=== PATIENT | male | born 1990 ===

== ENCOUNTER 2018-02-22 19:30 | Inpatient (IN) | payer OTHER ==
[~2018-02-22] VITALS: Ht 180.3 cm; Wt 60.3 kg
--- NOTE | 2018-02-23 00:03 | NUR ---
PREADMISSION NOTE Pt. is A/O to person, place, time, and purpose. Pt. states substance use of Opiates. Last use was 02/22/18 @ 1800. Pt. appears mildly intoxicated. Pt. claims he is not feeling any s/s of withdrawal. Pt. has a steady gait unassisted. Pt.'s V/S are P: 98, RR:18, O2Sat: 98%, and BP: 116/54. Pt. is acceptable to come onto the unit.
[2018-02-23] MEDS ORDERED: IBUPROFEN 400 MG TABLET PO PRN (00:15)
[2018-02-23] MEDS ORDERED: HYDROXYZINE PAMOATE 25 MG CAPSULE PO PRN (00:15)
[2018-02-23] MEDS ORDERED: MIRALAX 17 GM POWD.PACK PO PRN (00:15)
[2018-02-23] MEDS ORDERED: LOPERAMIDE HCL 2 MG CAPSULE PO PRN ×2 (00:15)
[2018-02-23] MEDS ORDERED: MAGNESIUM HYDROXIDE 30 ML LIQUID UDC PO PRN (00:15)
[2018-02-23] MEDS ORDERED: ONDANSETRON 4 MG/2 ML VIAL IM PRN (00:15)
[2018-02-23] MEDS ORDERED: ONDANSETRON ODT 4 MG TAB.RAPDIS SL PRN (00:15)
[2018-02-23] MEDS ORDERED: BUPRENORPHINE HCL 2 MG TAB.SUBL SL PRN (00:15)
[2018-02-23] MEDS ORDERED: PARO30TA4 PO (00:34)
[2018-02-23] MEDS ORDERED: LITH300T3 PO (00:34)
[2018-02-23 01:12] LABS: *AMPHETAMINE, URINE POSITIVE (NEGATIVE); *BARBITURATE, URINE NEGATIVE (NEGATIVE); *CANNABINOID, URINE NEGATIVE (NEGATIVE); *COCCAINE, URINE NEGATIVE (NEGATIVE); *OPIATE, URINE POSITIVE (NEGATIVE); *PHENCYCLIDINE SCREEN,URINE NEGATIVE (NEGATIVE)
--- NOTE | 2018-02-23 01:19 | NUR ---
ADMISSION NOTE Pt. is a 28 y/o male being admitted for medically supervised withdrawal from Opiates. Pt. is intoxicated and is currently not experiencing any withdrawal symptoms. Pt. presents w/ a disheveled and unkempt appearance, a flat affect, and avoidant eye contact. Pt. is A/O to person, place, time, and purpose. Pt. states that typical withdrawal s/s includes restlessness, anxiety, chills, sweats, and body aches. Pt. states current substance use as follows: 1. Heroin : 2 g daily for the past month. Pt. first began using 10 yrs. ago. Pt.s last use was 02/22/18 @ 1800. 2. Subutex: 24 mg 2-3/ week for the past year. Pt. first began using 6 yrs. ago. Pt.s last use was 02/22/18 @ 0900. 3. Methamphetamines: 0.5 g daily for the past month. Pt. first began using 1 yr. ago. Pt.s last use was 02/22/18 @ 1800. Pt. states that he seeking treatment today because, Im tired of being an addict and I want to be sober. Pt. also states, I have been sober for extended period of time and I feel better when I am. Most recently he was at [facility] in January of 2017. Pt. states that his coping mechanisms for stress are drugs, women, and gambling all the things that feed his ego. Pt. states that this time will be different because, there is more on the line. Also he feels more mature and that he is ready. Pt. states that he has support from his family, whom none of which are addicts. V/S were as follows: T: 98.1, P: 97, RR: 18, O2Sat: 99%, and BP: 133/76. His respirations are even and unlabored. Skin is intact. Pt. follows a regular diet at home. Pt. vapes and smokes 10 cigarettes a day. Pt.s PCP is Dr. Glass. Pt. has no medical Hx. Pt. takes Paxil and [place] for depression and bipolar disorder.
[2018-02-23 01:23] LABS: BASOPHILS # (AUTO) 0.1 K/uL (0.0-8.0); BASOPHILS % (AUTO) 0.7 % (0.0-2.0); EOSINOPHILS # (AUTO) 0.3 K/uL (0.0-0.7); EOSINOPHILS % (AUTO) 3.2 % (0.0-7.0); HEMATOCRIT 47.4 % (36.7-47.1); HEMOGLOBIN 17.2 g/dL (12.5-16.3); LYMPHOCYTES # (AUTO) 3.3 K/uL (20.0-40.0); LYMPHOCYTES % (AUTO) 37.3 % (20.5-51.5); MEAN CORPUSCULAR HEMOGLOBIN 33.2 uug (23.8-33.4); MEAN CORPUSCULAR HGB CONC 36 g/dL (32.5-36.3); MEAN CORPUSCULAR VOLUME 91.6 fL (73.0-96.2); MONOCYTES # (AUTO) 0.7 K/uL (2.0-10.0); MONOCYTES % (AUTO) 7.5 % (0.0-11.0); NEUTROPHILS # (AUTO) 4.6 K/uL (1.8-8.9); NEUTROPHILS % (AUTO) 51.3 % (38.5-71.5); PLATELET COUNT (AUTO) 342 K/uL (152-348); RED BLOOD CELL COUNT(AUTO) 5.17 MIL/uL (4.06-5.63); WHITE BLOOD COUNT (AUTO) 8.9 K/uL (3.6-10.2)
[2018-02-23] MEDS: ACETAMINOPHEN 325 MG TABLET PO PRN (01:30)
[2018-02-23] MEDS: CLONIDINE HCL 0.1 MG TABLET PO PRN (01:31)
[2018-02-23] MEDS: diphenhydrAMINE 50 MG CAPSULE PO PRN (01:31)
--- NOTE | 2018-02-23 01:31 | NUR ---
PRN ADMINISTRATION PRN Clonidine 0.1 mg, Benadryl 50 mg, and Tylenol 650 mg given for headache and restlessness/anxiety. Will reassess pt. in 1 hour.
[2018-02-23 01:43] LABS: ALANINE AMINOTRANSFERASE 27 U/L (16-63); ALKALINE PHOSPHATASE 78 U/L (50-136); AMYLASE 52 U/L (25-115); ASPARTATE AMINOTRANSFERASE 16 U/L (15-37); BILIRUBIN,TOTAL 0.4 mg/dL (0.2-1.0); CARBON DIOXIDE 32 mmol/L (21-32); CHLORIDE 104 mmol/L (98-107); CREATININE 0.8 mg/dL (0.6-1.3); GLUCOSE 109 mg/dL (74-106); LIPASE 129 U/L (73-393); MAGNESIUM 2.2 mg/dL (1.8-2.4); TOTAL PROTEIN, SERUM 8.8 g/dL (6.4-8.2); UREA NITROGEN, BLOOD 8 mg/dL (7-18)
[2018-02-23 01:53] LABS: THYROID STIMULATING HORMONE 3.107 mIU/mL (0.358-3.740)
[2018-02-23 02:18] LABS: ETHANOL < 3 MG/DL (0-0)
--- NOTE | 2018-02-23 02:31 | NUR ---
PRN REASSESSMENT Pt. is in bed w/ his eyes closed. Pt's breathing is unlabored and even.
--- NOTE | 2018-02-23 04:03 | NUR ---
RN NOTE Pt. deferred COWS and refused V/S. Pt. is in bed w/ his eyes closed. Pt.'s breathing is unlabored even.
[2018-02-23] MEDS ORDERED: POTASSIUM CHLORIDE 20 MEQ TAB.PRT.SR PO ONE (06:00)
--- NOTE | 2018-02-23 06:37 | NUR ---
PRN ADMINISTRATION PRN Kdur 20 mEQ given for Potasium level of 3.0.
--- NOTE | 2018-02-23 07:17 | NUR ---
END OF SHIFT NOTE Endorsed Pt. to oncoming nurse. Pt. is a 28 y/o male A/O to person, place, time, and purpose. Pt. was admitted medically supervised withdrawal from opiates. Pt. presents w/ . Pt. PRN Benadryl 50 mg, Clonidine 0.1 mg, and Tylenol 650mg @ 0131 for headache and restlessness/anxiety, noted effective. PRN K-Dur 20 MEQ given for potassium level of 3.0. Pt.s fluid intake was 473 ml. Pt. voided 1 times and slept for 3.5 hrs. Last COWS 5 @ 0130. Call light within reach.
[2018-02-23 08:00] VITALS: BP 100/60
--- NOTE | 2018-02-23 08:10 | NUR ---
START OF SHIFT: RECEIVED PT LAYING IN BED SLEEPING. HE IS EASILY AROUSABLE AND STATES ' PLEASE LET ME SLEEP". 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 BED LOCKED AND LOW. WILL HOLD 0900 MVI AND ALLOW PT TO SLEEP. MADE AWARE. Addendum: 02/23/18 at 1256 by CORRINE KNAPP RN COWS DEFERRED
[2018-02-23] MEDS: MULTIVITAMINS,THERAPEUTIC TABLET PO SCH (09:00)
[2018-02-23] MEDS ORDERED: IBUPROFEN 600 MG TABLET PO PRN (09:15)
[2018-02-23] MEDS ORDERED: LORAZEPAM 1 MG TABLET PO PRN (09:15)
[2018-02-23] MEDS ORDERED: CLONIDINE HCL 0.1 MG TABLET PO ONE (11:30)
[2018-02-23] MEDS ORDERED: GABAPENTIN 300 MG CAPSULE PO ONE (11:30)
[2018-02-23 12:00] VITALS: BP 81/49
--- NOTE | 2018-02-23 12:57 | NUR ---
HELD 1130 MEDS PT IS ASLEEP. BP 81/49 P 70 R 16 EVEN AND UNLABORED. BED LOCKED AND LOW. CALL [facility] IN REACH. 1200 COWS DEFERRED.
[2018-02-23] MEDS: PAROXETINE HCL 20 MG TABLET PO SCH ×2 (13:00→17:06)
[2018-02-23] MEDS ORDERED: LITHIUM CARBONATE 300 MG TABLET PO SCH (13:00)
[2018-02-23] MEDS ORDERED: LITH300T PO (13:27)
[2018-02-23] MEDS: LITHIUM CARBONATE 300 MG TABLET.SA PO SCH ×2 (13:30→17:07)
[2018-02-23 16:00] VITALS: BP 90/60
--- NOTE | 2018-02-23 16:27 | NUR ---
PT CONTINUES TO SLEEP. AND ASKS TO BE LEFT ALONE HE SAYS HE NEEDS SLEEP. MEDS REFUSED.BED LOCKED AND LOW. CALL [facility] IN REACH. WILL CONTINUE TO MONITOR AND PROVIDE SAFE AND SUPPORTIVE ENVIRONMENT.
--- NOTE | 2018-02-23 16:46 | NUR ---
Therapist prompted client to attend daily group therapy sessions. Client related that he is not feeling well at this time and will attend when he feels better.
[2018-02-23] MEDS: METHOCARBAMOL 750 MG TABLET PO PRN (17:04)
[2018-02-23] MEDS: HYDROXYZINE PAMOATE 25 MG CAPSULE PO PRN (17:04)
--- NOTE | 2018-02-23 17:15 | NUR ---
PT IS A/O X 4. HE REPORTS CHILLS ANXIETY,RESTLESSNESS AND BODY ACHES COWS 12. PRN ROBAXIN,MOTRIN,VISTARIL GIVEN. LATE ADMIN OF LITHIUM AND PAXIL GIVEN PER PSYCH MD.WILL CONTINUE TO MONITOR AND MANAGE S/S OF W/D.
--- NOTE | 2018-02-23 17:34 | NUR ---
PRN SUBUTEX 4MG SL GIVEN FOR COWS 12 . WILL MONITOR EFFECTIVENESS.
--- NOTE | 2018-02-23 18:05 | NUR ---
PT STATES THAT HE FEELS BETTER.PRN SUBUTEX EFFECTIVE. COWS 10. HE STATES THE PRN VISTARIL, ROBAXIN AND MOTRIN ALSO HELPED. WILL CONTINUE TO MONITOR.
--- NOTE | 2018-02-23 19:15 | NUR ---
END OF SHIFT: PT SLEPT UNTIL ABOUT 1730 TONIGHT. HE AWOKE C/O BODY ACHES,CHILLS,SWEATS,IRRITABILITY AND STOMACH CRAMPS. COWS 12. PRN SUBUTEX 4MG SL GIVEN AND EFFECTIVE AEB COWS 10. ENCOURAGED INCREASED FLUIDS TO ASSIST IN FACILITATING DETOX PROCESS. NEW ORDERS FOR MODIFIED SUBUTEX TAPER. WILL PASS SHIFT REPORT TO ONCOMING NIGHT NURSE.
--- NOTE | 2018-02-23 19:30 | NUR ---
START OF SHIFT Pt is a 28 y/o male admitted on 02/22/18 for opiate and meth withdrawal. Pt is on a 4 day Subutex taper, tolerating well. Last COWS 10, Clonidine held and PRN Subutex, Vistaril, Robaxin and Motrin administered during day shift. Upon assessment pt laying in bed with eyes closed, upon awakening pt presents with anxiety, lethargy, difficulty concentrating, poor eye contact, flushed skin, intermittent sweats, intermittent chills, fatigue, flat affect, agitation, irritability, and is isolative. Medications due. Safety measures in place. Call light within reach. Will continue to monitor.
[2018-02-23 20:00] VITALS: BP 81/40
[2018-02-23] MEDS ORDERED: BUPRENORPHINE HCL 2 MG TAB.SUBL SL SCH (21:00)
[2018-02-23] MEDS: CLONIDINE HCL 0.1 MG TABLET PO SCH (21:00)
--- NOTE | 2018-02-23 21:00 | NUR ---
SCHEDULED CLONIDINE AND SUBUTEX 4 MG HELD BP 81/40 and HR 66, orders to hold Clonidine and Subutex. Safety measures in place. Call light within reach. Will continue to monitor.
[2018-02-23] MEDS: GABAPENTIN 300 MG CAPSULE PO SCH (22:03)
--- NOTE | 2018-02-23 22:03 | NUR ---
PRN ATIVAN 2 MG ADMINISTRATION Pt presents with agitation and anxiety. Safety measures in place. Call light within reach. Will continue to monitor.
--- NOTE | 2018-02-23 23:03 | NUR ---
PRN ATIVAN REASSESSMENT Pt laying in bed with eyes closed, medication noted effective. Respirations even and unlabored. Safety measures in place. Call light within reach. Will continue to monitor.
--- NOTE | 2018-02-24 | NUR ---
COWS DEFERRED AND VITALS REFUSED Pt laying in bed with eyes closed, COWS deferred, to be assessed when pt is awake per orders. Vitals refused. Respirations even and unlabored. Safety measures in place. Call light within reach. Will continue to monitor.
[2018-02-24 07:06] LABS: HEPATITIS B SURFACE AG Negative (Negative)
--- NOTE | 2018-02-24 07:10 | NUR ---
END OF SHIFT Pt is a 28 y/o male admitted on 02/22/18 for opiate and meth withdrawal. Pt is on a 4 day Subutex taper, tolerating well. Pt presented with anxiety, lethargy, difficulty concentrating, poor eye contact, flushed skin, intermittent sweats, intermittent chills, fatigue, flat affect, agitation, irritability, and was isolative. Scheduled medications and PRN Ativan 2 mg administered, effective in S/S of withdrawal as verbalized by pt. Last COWS 7. Pt slept 11 hours. Intake 100 ml, void x 0, stool x 0. Safety measures in place. Call light within reach. Pts needs have been met. Endorsed to day shift nurse.
[2018-02-24 08:00] VITALS: BP 90/60
--- NOTE | 2018-02-24 08:17 | NUR ---
START OF SHIFT: PT LAYING IN BED A/O X 4. HE PRESENTS WITH GUARDED AFFECT AND SUBDUED MOOD. HE REPORTS BODY ACHES,SWEATS AND CHILLS. HE STATES HE FEELS FATIGUED AND JUST WANTS TO SLEEP THROUGH HIS S/S OF W/D.SUBUTEX TAPER IN PROGRESS COWS 7 ENCOURAGED REST AND FLUIDS. HE REFUSED PPD. WILL CONTINUE TO MONITOR AND OFFER SUPPORT.
[2018-02-24] MEDS: CLONIDINE HCL 0.1 MG TABLET PO SCH ×2 (09:00→20:11)
[2018-02-24] MEDS ORDERED: TUBERCULIN,PURIF.PROT.DERIV. 5 TU/0.1 ML TEST ID ONE (09:00)
[2018-02-24] MEDS ORDERED: BUPRENORPHINE HCL 2 MG TAB.SUBL SL SCH (09:00)
[2018-02-24] MEDS: LITHIUM CARBONATE 300 MG TABLET.SA PO SCH (09:40)
[2018-02-24] MEDS: PAROXETINE HCL 20 MG TABLET PO SCH (09:40)
[2018-02-24] MEDS: GABAPENTIN 300 MG CAPSULE PO SCH ×3 (09:40→20:11)
[2018-02-24] MEDS: MULTIVITAMINS,THERAPEUTIC TABLET PO SCH (09:40)
[2018-02-24 12:00] VITALS: BP 85/51
[2018-02-24] MEDS: BUPRENORPHINE HCL 2 MG TAB.SUBL SL SCH ×2 (15:23→20:11)
[2018-02-24 16:00] VITALS: BP 98/55
--- NOTE | 2018-02-24 19:21 | NUR ---
END OF SHIFT: PT CONTINUES ON MODIFIED SUBUTEX TAPER TO MANAGE S/S OF W/D WHICH INCLUDE ANXIETY RESTLESSNESS,BODY ACHES AND FATIGUE. COWS 6 . ENCOURAGED INCREASED FLUIDS TO ASSIST IN FACILITATING DETOX PROCESS. ENCOURAGED GROUP ATTENDANCE. PT STATES HE WILL TRY TOMORROW. WILL PASS SHIFT REPORT TO ONCOMING NIGHT NURSE.
--- NOTE | 2018-02-24 19:21 | NUR ---
START OF SHIFT NOTE: Endorsed 28 year old male presented for Opioid(Heroin) , Subutex, and Methamphetamine withdrawal, continues ordered 4 day Subutex Taper which tolerated well. Patient is alert and oriented x4. He is appears sad with flat affect and mood depressed. Encouraged to express his feelings. Patient noted disheveled, unshaven, unkempt, and uncombed. Latest COWS=6 at 1600. Patient presented with anxiety, agitation, depression, nervousness, c/o generalized body aches, restlessness, sweating, and fatigue. Respirations are even and unlabored. Patient denies SOB, chest pain, and cough. Skin is intact, warm and dry to touch. No PRN Medications administrated during day shift. Patient remains compliant with treatment, medications, and diet regime per day shift nurse report. Encouraged to fluids intake as tolerated. Patient attended group activities. Safe and calm environment with minimized noises was provided. All needs met. Safety measures in place: Call light within reach, bed is locked in lowest position, padded bed rails up bilaterally. Patient endorsed by outgoing day shift nurse. Will continue to monitor closely.
[2018-02-24 20:00] VITALS: BP 103/67
[2018-02-24] MEDS: diphenhydrAMINE 50 MG CAPSULE PO PRN (20:11)
--- NOTE | 2018-02-24 20:11 | NUR ---
PRN BENADRYL 50 MG 1 CAPSULE PO ADMINISTRATION PRN Benadryl 50 mg PO administrated as ordered for insomnia with full glass of water. Patient tolerated well. Safe and calm environment with minimized noises was provided. All needs met. Safety measures in the place: Call light within reach, bed locked in the lowest position, padded rails up x2. Will continue to monitor closely.
--- NOTE | 2018-02-24 21:11 | NUR ---
RE-ASSESSMENT Patient is sleeping. RR 16. Respirations even and unlabored. PRN Benadryl 50 mg PO administrated at 2010 as ordered was effective. Safe and calm environment with minimized noises was provided. All needs met. Safety measures in the place: Call light within reach, bed locked in the lowest position, padded rails up x2. Will continue to monitor closely.
[2018-02-25] VITALS: BP 93/54
--- NOTE | 2018-02-25 04:00 | NUR ---
VS REFUSED, COWS DEFERRED VS refused, COWS deferred at 0400 due to patient sleeping; to be assessed and scored while patient is awake. Respirations are even and unlabored. RR:15. Safe and calm environment with minimized noises was provided. All needs met. Safety measures in the place: Call light within reach, bed in the lowest position and locked, padded rails up x2. Patient endorsed to day shift nurse.
--- NOTE | 2018-02-25 07:11 | NUR ---
END OF SHIFT NOTE Endorsed 28 year old male presented for Opioid(Heroin), Subutex, and Methamphetamine withdrawal, continues ordered 4 day Subutex Taper which tolerated well. Withdrawal symptoms was closely monitored. Patient is alert and oriented x4. Patient appears anxious, worry with poor eye contact, and liable mood. Emotional support provided. Patient encouraged to expresses his feelings. Education provided to use of Relaxation Techniques: deep breathing exercises, guided imagery, and visualization. Patient noted disheveled, unshaven, unkempt, and uncombed. Hoarding food and spilled drinks noted around the room. Education in safety and hygiene care provided. Encouraged to independently perform hygiene care. Initial COWS=11 at 2000. The most recent COWS=11 at 0000. VS refused, COWS deferred at 0400 due to patient sleeping; to be assessed and scored while patient is awake. Patient presented with anxiety, agitation, nervousness, abdominal cramps, nasal congestion, restlessness, tremors, sweating, and body aches. PRN Benadryl 50 mg PO administrated at 2010 as ordered was effective. Patient remains compliant with treatment, medications, and diet regime. Patient slept 10 hours, intake 855 ml, voided x1, stool x2. Safe and calm environment with minimized noises was provided. All needs met. Safety measures in the place: Call light within reach, bed in the lowest position and locked, padded rails up x2. Patient endorsed to day shift nurse.
--- NOTE | 2018-02-25 07:45 | NUR ---
START OF SHIFT Rcvd endorse from ongoing nurse, client is in bed in a position, client is a/o x 4. he presents with anxious mood, flat affect, moist skin, fine tremors, and difficulty concentrating. Client noted with healed scars on forehead, he appears disheveled, dark circles under eyes, and malnourished. Client reports inability to sleep, restlessness, anxiety, cold/chills, a sense of panic, and abdominal cramps, and decrease appetite. Encourage client to drink PO fluids as tolerated to facilitate detox. Encourage client to attend group therapy to learn skills to maintain sober. Last COWS 11 @ 2400. PRN medication administered overnight and noted per protocol. Client slept 10 hrs. [place] precautions in place. Call light within reach.
[2018-02-25 08:55] VITALS: BP 113/66
[2018-02-25] MEDS: GABAPENTIN 300 MG CAPSULE PO SCH ×3 (09:13→20:54)
[2018-02-25] MEDS: CLONIDINE HCL 0.1 MG TABLET PO SCH ×3 (09:13→20:54)
[2018-02-25] MEDS: PAROXETINE HCL 20 MG TABLET PO SCH (09:13)
[2018-02-25] MEDS: MULTIVITAMINS,THERAPEUTIC TABLET PO SCH (09:13)
[2018-02-25] MEDS: BUPRENORPHINE HCL 2 MG TAB.SUBL SL SCH ×3 (09:13→20:53)
[2018-02-25] MEDS: LITHIUM CARBONATE 300 MG TABLET.SA PO SCH (09:14)
[2018-02-25] MEDS ORDERED: KETOROLAC TROMETHAMINE 30 MG INJ IM PRN (10:15)
[2018-02-25 12:35] VITALS: BP 98/57
[2018-02-25] MEDS: DICYCLOMINE HCL 20 MG TABLET PO SCH ×2 (15:00→20:53)
--- NOTE | 2018-02-25 15:33 | NUR ---
Client declined 1500 medications, stating, "No, I just want to sleep, I need to sleep." Risk and benefits of medication discuss, client requires reinforcement due to poor concentration. MD and CN notified. Call light within reach.
[2018-02-25] MEDS: ACETAMINOPHEN 325 MG TABLET PO PRN (16:46)
[2018-02-25] MEDS: HYDROXYZINE PAMOATE 25 MG CAPSULE PO PRN (16:46)
[2018-02-25] MEDS: METHOCARBAMOL 750 MG TABLET PO PRN (16:46)
--- NOTE | 2018-02-25 16:46 | NUR ---
PRN Robaxin 750mg Po for myalgia, Tylenol 650mg for generalized body aches 6/10, and Vistaril 25mg PO for anxiety administered. Call light within reach.
[2018-02-25 16:50] VITALS: BP 95/58
--- NOTE | 2018-02-25 17:46 | NUR ---
Reassess PRN Robaxin 750mg, Tylenol 650mg, and Vistaril 25mg, client reports some relief from generalized body aches 2/10 and myalgia, but tolerable, he continue to present with anxious mood. Will continue to monitor.
--- NOTE | 2018-02-25 18:50 | NUR ---
START OF SHIFT NOTE: Patient is a 28 year old male admitted for Opioid(Heroin) , Subutex, and Methamphetamine withdrawal, continues ordered 4 day Subutex Taper which tolerated well. Withdrawal symptoms closely monitoring. Patient remains compliant with treatment, medications, and diet regime. The patient is alert and oriented x4. He is cooperative. His mood and affect are depressed and anxious. Encouraged to express his feelings. Reassuring provided. Patient noted disheveled, unshaven, unkempt, and uncombed. Education in safety and hygiene care provided to patient. Encouraged to independently perform hygiene care. Latest COWS=13 at 1650: Patient presented with anxiety, agitation, depression, nervousness, tremors, nasal congestion, yawning, c/o moderate generalized body aches, stomach cramps, restlessness, sweating, and fatigue. Respirations are even and unlabored. Patient denies SOB, chest pain, and cough. Skin remains intact, warm and dry to touch. PRN Robaxin 750 mg PO administrated for myalgia at 1646, PRN Vistaril 25 mg PO administrated for anxiety at 1646, and PRN Tylenol 650 mg PO administrated for generalized body aches "6/10" at 1646, were effective per day shift nurse report. Encouraged to fluids intake as tolerated. Encouraged to attend group activities. Safe and calm environment with minimized noises was provided. All needs met. Safety measures in place: Call light within reach, bed is locked in lowest position, padded bed rails up bilaterally. Patient endorsed by outgoing day shift nurse. Will continue to monitor closely.
--- NOTE | 2018-02-25 19:11 | NUR ---
END OF SHIFT Endorse client to incoming nurse, client is in room, a/o x 4. he continues to present with anxious mood, flat affect, moist skin, fine tremors, restlessness, anxiety, cold/chills, and decrease appetite. Adequate PO fluid intake 1210mL, void x 3. Client consumes 75% of meals. Client is compliant with 2/3 of group therapy. Last COWS 13 @ 1600. PRN medication administered and noted per protocol. [place] precautions in place. Call light within reach.
[2018-02-25 20:00] VITALS: BP 98/64
[2018-02-25] MEDS: BACLOFEN 10 MG TABLET PO SCH (20:54)
[2018-02-25] MEDS: diphenhydrAMINE 50 MG CAPSULE PO PRN (20:54)
--- NOTE | 2018-02-25 20:54 | NUR ---
PRN BENADRYL 50 MG 1 CAPSULE PO ADMINISTRATION PRN Benadryl 50 mg PO administrated as ordered for insomnia with full glass of water. Patient tolerated well. Safe and calm environment with minimized noises was provided. All needs met. Safety measures in the place: Call light within reach, bed in the lowest position locked, padded rails up x2.
--- NOTE | 2018-02-25 21:54 | NUR ---
RE-ASSESSMENT Patient is sleeping. RR 15. Respirations even and unlabored. PRN Benadryl 50 mg PO administrated at 2053, as ordered, was effective. Safe and calm environment with minimized noises was provided. All needs met. Safety measures in the place: Call light within reach, bed locked in the lowest position, padded rails up x2. Will continue to monitor closely.
--- NOTE | 2018-02-26 | NUR ---
VS REFUSED, COWS DEFERRED VS refused, COWS deferred at 0000 due to patient sleeping; to be assessed and scored while patient is awake. Respirations are even and unlabored. RR:14. Safe and calm environment with minimized noises was provided. All needs met. Safety measures in the place: Call light within reach, bed in the lowest position and locked, padded rails up x2. Patient endorsed to day shift nurse.
--- NOTE | 2018-02-26 04:00 | NUR ---
VS REFUSED, COWS DEFERRED VS refused, COWS deferred at 0400 due to patient sleeping; to be assessed and scored while patient is awake. Patient's respirations are even and unlabored. RR:16. All needs met. Safety measures in place: Call light within reach, bed locked in low position, padded side rails up x2. Will continue to monitor closely.
--- NOTE | 2018-02-26 06:57 | NUR ---
END OF SHIFT NOTE: Patient is a 28 year old male continues 4 day Subutex Taper ordered for Opioid (Heroin, Subutex) and Methamphetamine withdrawal. Patient is alert and oriented x4 with steady gait. He is cooperative with soft and clear speech. Patient appears sad, worry, with anxious mood, and expresses feelings of nervousness and irritability. Encouraged to expresses his feelings. Emotional support and reassuring provided. Educated to use of Relaxation Techniques: Deep breathing exercises, guided imagery, and visualization. COWS=12 at 1999. Patient presented with anxiety, agitation, nervousness, nasal congestion, restlessness, tremors, insomnia, sweating, and fatigue. VS refused, COWS deferred at 0000 and at 0400 due to patient sleeping; to be assessed and scored while patient is awake. VSWNL. Respirations are even and unlabored. Skin is intact, warm, and dry to touch. PRN Benadryl 50 mg PO administrated for insomnia at 2053 was effective. Calm and safety environment with minimized noises provided. Patient remains compliant with treatment, medications, and diet regime. Patient slept 9 hours, intake 1,710 ml, voided x2. Encouraged to fluid intake as tolerated. Encourage to attended groups activities. Patient scheduled discharging today. All needs met. Safety measures in the place: Call light within reach, bed locked in the lowest position, padded rails up x2. Patient endorsed to day shift nurse.
--- NOTE | 2018-02-26 07:45 | NUR ---
START OF SHIFT Rcvd endorse from ongoing nurse, client is in bed, covered from head to toe with several blanket, he is a/o x 4. he presents with depressed mood, flat affect, clammy skin, dilated pupils, runny nose, tremors, and difficulty concentrating. He appears dishevel, scattered healed scars on face. dry lips, mild moderate muscle loss. Client reports headache, abdominal cramps, cold/chills, generalized body aches, and fatigue. Encourage client to drink PO fluids as tolerated to facilitate detox. Encourage client to attend group therapy to learn skills to maintain sober. Last COWS 12 @ 1999. PRN Benadryl 50mg PO for inability to sleep, client slept 9 hrs. [place] precautions in place. Call light within reach.
[2018-02-26 08:15] VITALS: BP 95/52
[2018-02-26] MEDS ORDERED: BUPRENORPHINE HCL 2 MG TAB.SUBL SL SCH (09:00)
[2018-02-26] MEDS: PAROXETINE HCL 20 MG TABLET PO SCH (09:46)
[2018-02-26] MEDS: BACLOFEN 10 MG TABLET PO SCH ×3 (09:46→21:26)
[2018-02-26] MEDS: CLONIDINE HCL 0.1 MG TABLET PO SCH ×3 (09:46→21:00)
[2018-02-26] MEDS: DICYCLOMINE HCL 20 MG TABLET PO SCH ×3 (09:47→21:26)
[2018-02-26] MEDS: GABAPENTIN 300 MG CAPSULE PO SCH ×3 (09:47→21:26)
[2018-02-26] MEDS: LITHIUM CARBONATE 300 MG TABLET.SA PO SCH (09:47)
[2018-02-26] MEDS: MULTIVITAMINS,THERAPEUTIC TABLET PO SCH (09:47)
[2018-02-26 12:12] VITALS: BP 99/53
[2018-02-26 13:38] LABS: *BILIRUBIN,URIN NEGATIVE (NEGATIVE); *BLOOD, URINE NEGATIVE (NEGATIVE); *CLARITY,URINE CLOUDY (CLEAR); *COLOR,URINE YELLOW (YELLOW); *KETONES,URINE NEGATIVE (NEGATIVE); LEUKOCYTE ESTERASE ,URINE NEGATIVE (NEGATIVE); NITRITE, URINE NEGATIVE (NEGATIVE); PH,URINE 7.5 (5.0-8.0); UGLUCOSE NEGATIVE (NEGATIVE)
[2018-02-26] MEDS: MAG HYDROX/AL HYDROX/SIMETH 30 ML LIQUID UDC PO PRN (14:14)
[2018-02-26 14:27] LABS: *PROTEIN,URINE TRACE (NEGATIVE)
[2018-02-26 14:30] LABS: RBC,URINE 0-3 /HPF (0-3)
[2018-02-26 14:31] LABS: BACTERIA,URINE NONE SEEN /HPF (NONE SEEN); MUCUS,URINE MANY /LPF (0-FEW); SQUAMOUS EPITHELIAL CELL,UR FEW /HPF (NONE SEEN); URINE AMORPHOUS PHOSPHATES MODERATE /HPF
[2018-02-26 16:55] VITALS: BP 96/60
--- NOTE | 2018-02-26 17:12 | NUR ---
Therapist prompted client to attend the next group meeting. Client stated that he would attend.
[2018-02-26] MEDS ORDERED: CLON0.1T14 PO (18:11)
[2018-02-26] MEDS ORDERED: DICY20TA28 PO (18:11)
[2018-02-26] MEDS ORDERED: HYDR-3895 PO (18:11)
[2018-02-26] MEDS ORDERED: DIPH50CA37 PO (18:11)
[2018-02-26] MEDS ORDERED: IBUP-1955 PO (18:11)
[2018-02-26] MEDS ORDERED: GABA-534 PO ×2 (18:11)
[2018-02-26] MEDS ORDERED: METH-406 PO (18:11)
[2018-02-26] MEDS: HYDROXYZINE PAMOATE 25 MG CAPSULE PO PRN (18:47)
[2018-02-26] MEDS: CLONIDINE HCL 0.1 MG TABLET PO PRN (18:48)
--- NOTE | 2018-02-26 18:48 | NUR ---
PRN Clonidine 0.1mg PO, Vistaril 25mg PO administered for agitation and anxiety, client noted with difficulty staying still. Call light within reach. Incoming nurse to reassess.
--- NOTE | 2018-02-26 19:23 | NUR ---
END OF SHIFT Endorse client to incoming nurse, client is in group therapy, a/o x 4, he continues to present with depressed mood, flat affect, clammy skin, dilated pupils, runny nose, restlessness, anxiety, agitation, and difficulty concentrating. Adequate PO fluid intake 2132mL, void x 3. Client consumes 75% of meals. Client is compliant with 2/3 of group therapy. Last COWS 7 @ 1600. PRN administered, incoming nurse to reassess. [place] precautions in place. Call light within reach.
--- NOTE | 2018-02-26 19:30 | NUR ---
START OF SHIFT Pt is a 28 y/o male admitted on 02/22/18 for opiate withdrawal. Pt finished a Subutex taper, tolerated well. Last COWS 7 and PRN Vistaril and Clonidine administered, to be reassessed at 1948. Upon assessment pt laying in bed and presents with anxiety, agitation, intermittent chills, intermittent sweats, restlessness, difficulty falling asleep, tense posture, flat affect, depressed affect, unkempt room, intermittent stomach cramps, dysphoria, anhedonia and is isolative. Medications due. Safety measures in place. Call light within reach. Will continue to monitor.
--- NOTE | 2018-02-26 19:48 | NUR ---
PRN CLONIDINE AND VISTARIL REASSESSMENT Reassessment endorsed from day shift nurse. Pt verbalizes improvement in anxiety and is less fidgety. Safety measures in place. Call light within reach. Will continue to monitor. Addendum: 02/26/18 at 2226 by KAREY HOLLIDAY RN ADMINISTRATION NOT REASSESSMENT
[2018-02-26 20:00] VITALS: BP 86/48
--- NOTE | 2018-02-26 20:48 | NUR ---
PRN CLONIDINE AND VISTARIL REASSESSMENT Pt laying in bed with eyes closed, medications noted effective. Safety measures in place. Call light within reach. Will continue to monitor. Addendum: 02/26/18 at 2228 by KAREY HOLLIDAY RN WRONG FIRST AMENDMENT. CLONIDINE AND VISTARIL ALREADY REASSESSED
--- NOTE | 2018-02-26 21:00 | NUR ---
SCHEDULED CLONIDINE HELD BP 86/48 HR 83, Clonidine held. Safety measures in place. Call light within reach. Will continue to monitor.
[2018-02-26] MEDS: diphenhydrAMINE 50 MG CAPSULE PO PRN (21:26)
--- NOTE | 2018-02-26 21:26 | NUR ---
PRN BENADRYL ADMINISTRATION Pt requests sleep aid. Safety measures in place. Call light within reach. Will continue to monitor.
--- NOTE | 2018-02-26 22:26 | NUR ---
PRN BENADRYL REASSESSMENT Pt laying in bed with eyes closed, medication noted effective. Safety measures in place. Call light within reach. Will continue to monitor.
--- NOTE | 2018-02-27 07:16 | NUR ---
END OF SHIFT Pt is a 28 y/o male admitted on 02/22/18 for opiate withdrawal. Pt finished a Subutex taper, tolerated well. Pt presented with anxiety, agitation, intermittent chills, intermittent sweats, restlessness, difficulty falling asleep, tense posture, flat affect, depressed affect, unkempt room, intermittent stomach cramps, dysphoria, anhedonia and was isolative. Scheduled medications and PRN Benadryl administered, effective in S/S of withdrawal as verbalized by pt. Last COWS 7. Pt slept 10 hours. Intake 1579 ml, void x 3, stool x 0. Safety measures in place. Call light within reach. Pts needs have been met. Endorsed to day shift nurse.
--- NOTE | 2018-02-27 07:30 | NUR ---
Start of Shift Note Pt is a 28 y/o male admitted on 02/22/18 for the medically supervised withdrawal from opiates. Pt. was ordered a Subutex taper which was completed yesterday 02/26/2018. Endorsed pt.'s behavior during pm shift was anxious, agitation, restlessness, difficulty falling asleep and chills. Received pt. in room with laying in bed with eyes closed. Pt.'s room appears unkempt and is malodorous. Pt. arousable to name and touch but continue to just fall back to sleep. PRN Benadryl administered during PM shift. Last COWS 7. Pt slept 10 hours. Safety measures in place. Call light within reach. Bed position low and locked. Will continue to monitor pt.'s behavior for safety.
[2018-02-27 08:00] VITALS: BP 90/50
[2018-02-27] MEDS: CLONIDINE HCL 0.1 MG TABLET PO SCH (09:00)
[2018-02-27] MEDS: LITHIUM CARBONATE 300 MG TABLET.SA PO SCH (09:36)
[2018-02-27] MEDS: MULTIVITAMINS,THERAPEUTIC TABLET PO SCH (09:37)
[2018-02-27] MEDS: GABAPENTIN 300 MG CAPSULE PO SCH ×3 (09:37→21:37)
[2018-02-27] MEDS: BACLOFEN 10 MG TABLET PO SCH ×3 (09:37→21:37)
[2018-02-27] MEDS: DICYCLOMINE HCL 20 MG TABLET PO SCH ×3 (09:37→21:37)
[2018-02-27] MEDS: PAROXETINE HCL 20 MG TABLET PO SCH (09:37)
[2018-02-27] MEDS ORDERED: HYDROXYZINE PAMOATE 25 MG CAPSULE PO PRN (11:30)
[2018-02-27 12:00] VITALS: BP 96/55
[2018-02-27] MEDS ORDERED: PROPRANOLOL HCL 10 MG TABLET PO ONE (13:00)
[2018-02-27] MEDS ORDERED: PROP20TA19 PO (13:32)
--- NOTE | 2018-02-27 14:55 | NUR ---
PRN Medication Pt. complaining of GI distress at this time. maalox suspension given at this time. Will continue to monitor pt. for medication effectiveness.
[2018-02-27] MEDS: MAG HYDROX/AL HYDROX/SIMETH 30 ML LIQUID UDC PO PRN (14:56)
[2018-02-27 16:00] VITALS: BP 83/48
--- NOTE | 2018-02-27 16:25 | NUR ---
PRN Re-Assessment Pt. denies any symptoms of GI distress. Medication effective. Will continue to monitor pt.'s behavior for safety.
--- NOTE | 2018-02-27 17:45 | NUR ---
PRN Medication Pt. Given Imodium for GI distress and diarrhea x 1. Will continue to monitor pt. for medication effectiveness.
--- NOTE | 2018-02-27 19:03 | NUR ---
PRN Re-Assessment Pt. reports no GI distress at this time. Medication effective. Will continue to monitor pt.'s behavior for safety.
--- NOTE | 2018-02-27 19:04 | NUR ---
End of Shift Note Pt is a 28 y/o male admitted on 02/22/18 for the medically supervised withdrawal from opiates. Pt. was ordered a Subutex taper which was completed yesterday 02/26/2018. Throughout day shift pt. was anxious, agitated, restlessness, but able to be re-directed. Pt. compliant with treatment plan and medication regiment. PRN Maalox and Imodium administered for GI distress. Pt. is set to be discharged tomorrow to [facility] [place] Pt. had a total of 2172 ml P.O. intake and voided X3. Last COWS 8. Safety measures in place. Call light within reach. Bed position low and locked. Will endorse pt.'s care to oncoming shift.
--- NOTE | 2018-02-27 19:30 | NUR ---
START OF SHIFT Pt is a 28 y/o male admitted on 02/22/18 for opiate withdrawal. Pt finished a 4 day Subutex taper, tolerated well and is scheduled to be d/c tomorrow. Last COWS 8 and PRN Maalox and Imodium administered during day shift. Upon assessment pt presents with anxiety, restlessness, stomach cramps, diarrhea, flat affect, unkempt room, disheveled appearance, slumped posture. Medications due. Safety measures in place. Call light within reach. Will continue to monitor.
[2018-02-27 20:00] VITALS: BP 98/61
[2018-02-27] MEDS: PROPRANOLOL HCL 20 MG TABLET PO SCH (21:37)
[2018-02-27] MEDS: diphenhydrAMINE 50 MG CAPSULE PO PRN (21:37)
--- NOTE | 2018-02-27 21:41 | NUR ---
PRN VISTARIL AND BENADRYL ADMINISTRATION Pt requests Vistaril for anxiety and Benadryl for sleep. Safety measures in place. Call light within reach. Will continue to monitor.
--- NOTE | 2018-02-27 22:41 | NUR ---
PRN VISTARIL AND BENADRYL REASSESSMENT Pt verbalizes improvement in anxiety, remains awake at this time, states, "I just want to fall asleep after this TV show." Safety measures in place. Call light within reach. Will continue to monitor.
--- NOTE | 2018-02-28 07:01 | NUR ---
END OF SHIFT Pt is a 28 y/o male admitted on 02/22/18 for opiate withdrawal. Pt finished a 4 day Subutex taper, tolerated well and is scheduled to be d/c today. Pt presented with anxiety, restlessness, stomach cramps, diarrhea, flat affect, unkempt room, disheveled appearance, slumped posture. Scheduled medications and PRN Benadryl and Vistaril administered, effective in S/S of withdrawal as verbalized by pt. Last COWS 6. Pt slept 7 hours. Intake 1750 ml, void x 4, stool x 0. Safety measures in place. Pts needs have been met. Endorsed to day shift nurse.
--- NOTE | 2018-02-28 07:45 | NUR ---
START OF SHIFT Received report from cna ltc nurse. Pt is lying in bed resting and easily arousable. He is a 28 yo male admitted to [facility] for heroin withdrawal. He is A&O and ambulatory. Pt completed a Subutex taper and is scheduled for discharge today. He appears disheveled but states "I need to shower". He has several food wrappers and empty bottles around his room and in the bed. He reports slight stomach cramps. Minimal other s/s of withdrawal. Pt slept for 7 hours last night. Safety measures in place.
[2018-02-28 08:00] VITALS: BP 96/55
[2018-02-28] MEDS: BACLOFEN 10 MG TABLET PO SCH (08:37)
[2018-02-28] MEDS: DICYCLOMINE HCL 20 MG TABLET PO SCH (08:37)
[2018-02-28] MEDS: LITHIUM CARBONATE 300 MG TABLET.SA PO SCH (08:38)
[2018-02-28] MEDS: PAROXETINE HCL 20 MG TABLET PO SCH (08:39)
[2018-02-28] MEDS: GABAPENTIN 300 MG CAPSULE PO SCH (08:39)
[2018-02-28] MEDS: MULTIVITAMINS,THERAPEUTIC TABLET PO SCH (08:39)
[2018-02-28 08:40] VITALS: BP 96/55
[2018-02-28] MEDS: PROPRANOLOL HCL 20 MG TABLET PO SCH (08:40)
[2018-02-28 09:06] LABS: *GC NAA Negative (Negative); *TRIC.VAG. NAA Negative (Negative)
--- NOTE | 2018-02-28 09:58 | NUR ---
DISCHARGE Pt is discharging in stable condition. Vital signs are stable. He denies dizziness or SOB. He is A&O x4 and skin is intact. He denies any SI/HI. All discharge paperwork completed, dated, and signed. Pt educated regarding discharge instructions and s/s reportable to MD. He verbalized understanding. He was provided with all discharge paperwork, prescriptions, and medications. Last COWS 2. Pt was discharged from [facility] on 02/28/18 at 0953. MD and Psychiatrist aware of pt's discharge.
== END 2018-02-28 09:53 | disposition other institution (70) | DRG 895 ==
LOC: SRC 23:16
PROVIDERS: ADMIT Internal Medicine; ATTEND Internal Medicine
PROC: HZ2ZZZZ Detoxification Services for Substance Abuse Treatment (ICD-10-PCS; principal; 2018-02-22)
PROC: HZ41ZZZ Group Counseling for Substance Abuse Treatment, Behavioral (ICD-10-PCS; 2018-02-26)
DX: F11.23 Opioid dependence with withdrawal (principal); F15.20 Other stimulant dependence, uncomplicated; F31.9 Bipolar disorder, unspecified; E87.6 Hypokalemia; F10.10 Alcohol abuse, uncomplicated; Y90.0 Blood alcohol level of less than 20 mg/100 ml; F17.210 Nicotine dependence, cigarettes, uncomplicated; Z81.8 Family history of other mental and behavioral disorders; Z59.1 Inadequate housing; G47.00 Insomnia, unspecified
CPT/HCPCS: 36415; 70030-TC; 80307; 80324; 80361; 83690; 83735; 84443; 85025; 86592; 86705; 86803; 87340; 87491; 87806; G0480; J8499; Q0163

== ENCOUNTER 2018-09-21 18:41 | Inpatient (IN) | payer OTHER ==
[~2018-09-21] VITALS: Ht 177.8 cm; Wt 65.8 kg
[~2018-09-21 18:41] MED LIST: DICY20TA28 PO; DIPH50CA37 PO; GABA-534 PO; HYDR-3895 PO; IBUP-1955 PO; LITH300T PO; METH-406 PO; PARO30TA4 PO; PROP20TA19 PO
--- NOTE | 2018-09-21 23:00 | NUR ---
Pre-admission note Patient is a 28 year old male here at [facility] for medically supervised opiate withdrawal. Patient is AOx4 and has a steady gait. Patient is as a flat affect, guarded, and avoidant eye contact. Pt denies being intoxicated and denies withdrawal symptoms. Pt reports he has a hx of anxiety, depression and Bipolar. Patient brought home meds. Pt was using heroin 1-3 grams smoking daily, for one month. Pt last used today 09/21/18 at 1900 he smoked 0.5 gram. Initial vital signs: BP 129/79, RR16, P120, T 97.7, sat 99% on RA. Will continue to monitor upon arrival to unit.
[2018-09-21] MEDS ORDERED: ATOM80CA PO (23:07)
[2018-09-21] MEDS ORDERED: LITH300T3 PO (23:07)
[2018-09-21] MEDS ORDERED: DIVA500T54 PO (23:07)
--- NOTE | 2018-09-21 23:20 | NUR ---
Admission note Patient is a 28 year old male admitted on 09/21/18 at 2305. Patient is here at [facility] for medically supervised Opiate withdrawal. Patient reports he was smoking heroin and he last used 09/21/2018 at 1900. He smoked 0.5 gram and has been using for one month. He also has hx of Klonopin use since his last relapse 2mg 2-3 xs a week; last used one week ago. Pt also reported using methamphetamine intermittently of unspecified amount and last used two weeks ago. Patient denies being intoxicated and also denies experiencing withdrawal symptoms. Pt stated I start withdrawing after 6-8 hours. Patient states his typical withdrawal symptoms consist of bodyaches, dope sick, sniffles, upset stomach, restlessness, diarrhea, sweats, nausea and tremors. COWS assessment was deferred and will be further assessed when patient is presenting with withdrawal symptoms. Pt reports he has a hx of anxiety, depression and Bipolar. Patient takes Divalproex, Paroxetine HCL, lithium, Seroquel and Atomoxetine at home and brought home meds, will reconcile meds. Patient is a full code and follows a regular diet at home. Patient has NKA. Patient denies any past seizure, induce delirium, black outs or cardiac complications. Pt admits overdosing once at age 17 due to Oxycodone. Pt admits having blackouts in the past but does not recall the most recent one. Pt has not been hospitalized within the last 30 days. Patient has been here at [facility] in February 2018 and went to [facility] in [place]. Pt is under the care of psychiatrist Dr. Jeffrey. Pt is a smoker and he vapes; smokes a pack a day since he was 17 years old. Substance abuse hx: 1) Heroin: Patient stated that he was using 1-3 grams smoking daily for one month. He started using at the age of 18. Patient stated that his last use was of 0.5 g smoking today 09/21/2018 at 1900. Patients support system is his family, denies family hx of drug use. When asked pt why do you use he responded: I dont know; pt also said he does not know the barriers for staying sober. When asked why this admission is going to be different he said I dont know but I want to be sober and I dont want to be depressed. Patient reports he has faced legal consequence as a result of his drug use and also has lost close friends. Pated added I hate this it sucks, referring about his addiction and wanting to bring an end. Patient lives alone. Pt works in the [employer] industry. Patient is 5'10" and weights 145 lbs per standing scale. Patient's skin is intact, dry, and warm to touch. Capillary refill is <3 seconds. PERRLA is present with pupils at 3 mm bilaterally. Lungs are clear to auscultation bilaterally. Abdomen is soft and non-distended and bowel sounds are present in all 4 quadrant, last BM 09/14/2018. Initial vital signs are as follows: BP 129/79, RR16, P120, T 97.7, sat 99% on RA. Patient denies any pain. Breathing is even and unlabored. No signs and symptoms of respiratory distress. Patient was provided instructions regarding unit policies and rules. He provided urine and blood sample at unit. Fall precautions initiated and maintained. Safety measures in place, bed in low and locked position, side rails up x2, and call light within reach. Will continue to monitor. Addendum: 09/22/18 at 0522 by ADRY SMITH RN Patient presented withdrawn, depressed, flat affect, and disheveled.
[2018-09-21] MEDS ORDERED: ACETAMINOPHEN 325 MG TABLET PO PRN (23:45)
[2018-09-21] MEDS ORDERED: MAGNESIUM HYDROXIDE 30 ML LIQUID UDC PO PRN (23:45)
[2018-09-21] MEDS ORDERED: LORAZEPAM 1 MG TABLET PO PRN (23:45)
[2018-09-21] MEDS ORDERED: diphenhydrAMINE 50 MG CAPSULE PO PRN (23:45)
[2018-09-21] MEDS ORDERED: BUPRENORPHINE HCL 2 MG TAB.SUBL SL PRN (23:45)
[2018-09-21] MEDS ORDERED: LOPERAMIDE HCL 2 MG CAPSULE PO PRN ×2 (23:45)
[2018-09-21] MEDS ORDERED: CLONIDINE HCL 0.1 MG TABLET PO PRN (23:45)
[2018-09-21] MEDS ORDERED: SRC OPIOID WITHDRAWAL ADMITTING PROTOCOL XX PRN (23:45)
[2018-09-21] MEDS ORDERED: ONDANSETRON 4 MG/2 ML VIAL IM PRN (23:45)
[2018-09-21] MEDS ORDERED: MAG HYDROX/AL HYDROX/SIMETH 30 ML LIQUID UDC PO PRN (23:45)
[2018-09-21] MEDS ORDERED: HYDROXYZINE PAMOATE 25 MG CAPSULE PO PRN (23:45)
[2018-09-21] MEDS ORDERED: ONDANSETRON ODT 4 MG TAB.RAPDIS SL PRN (23:45)
[2018-09-22] VITALS: BP 129/79
[2018-09-22] MEDS ORDERED: QUETIAPINE FUMARATE 25 MG TABLET PO ONE
--- NOTE | 2018-09-22 | NUR ---
COWS Deferred Patient was not presenting with withdrawal symptoms. Will continue to monitor.
[2018-09-22 00:15] LABS: *AMPHETAMINE, URINE NEGATIVE (NEGATIVE); *BARBITURATE, URINE NEGATIVE (NEGATIVE); *CANNABINOID, URINE NEGATIVE (NEGATIVE); *COCCAINE, URINE NEGATIVE (NEGATIVE); *OPIATE, URINE POSITIVE (NEGATIVE); *PHENCYCLIDINE SCREEN,URINE NEGATIVE (NEGATIVE)
[2018-09-22 00:18] LABS: ALANINE AMINOTRANSFERASE 22 U/L (16-63); ALKALINE PHOSPHATASE 50 U/L (50-136); ASPARTATE AMINOTRANSFERASE 13 U/L (15-37); BILIRUBIN,TOTAL 1.1 mg/dL (0.2-1.0); CARBON DIOXIDE 30 mmol/L (21-32); CHLORIDE 100 mmol/L (98-107); CREATININE 1.1 mg/dL (0.6-1.3); GLUCOSE 99 mg/dL (74-106); MAGNESIUM 1.8 mg/dL (1.8-2.4); POTASSIUM 3.2 mmol/L (3.5-5.1); TOTAL PROTEIN, SERUM 7.8 g/dL (6.4-8.2); UREA NITROGEN, BLOOD 11 mg/dL (7-18)
[2018-09-22 00:30] LABS: ETHANOL < 3 MG/DL (0-0)
[2018-09-22 00:33] LABS: THYROID STIMULATING HORMONE 0.402 mIU/mL (0.358-3.740)
[2018-09-22 00:57] LABS: BASOPHILS % (AUTO) 0.4 % (0.0-2.0); EOSINOPHILS # (AUTO) 0.1 K/uL (0.0-0.7); EOSINOPHILS % (AUTO) 0.9 % (0.0-7.0); HEMATOCRIT 44.8 % (36.7-47.1); HEMOGLOBIN 16.1 g/dL (12.5-16.3); MEAN CORPUSCULAR HGB CONC 36 g/dL (32.5-36.3); MEAN CORPUSCULAR VOLUME 91.8 fL (73.0-96.2); MONOCYTES # (AUTO) 0.5 K/uL (2.0-10.0); NEUTROPHILS # (AUTO) 6.1 K/uL (1.8-8.9); NEUTROPHILS % (AUTO) 78.7 % (38.5-71.5); PLATELET COUNT (AUTO) 279 K/uL (152-348); RED BLOOD CELL COUNT(AUTO) 4.88 MIL/uL (4.06-5.63); WHITE BLOOD COUNT (AUTO) 7.8 K/uL (3.6-10.2)
[2018-09-22] MEDS ORDERED: POTASSIUM CHLORIDE 20 MEQ TAB.PRT.SR PO ONE (01:30)
--- NOTE | 2018-09-22 01:30 | NUR ---
Critical Value K 3.2, One time order K-Dur Patient's labs indicated K as low 3.2; charge nurse and MD notified. One time order of K-dur 40 Meq were administered and pt tolerated well. Safety measures in place and will continue to monitor.
[2018-09-22 04:00] VITALS: BP 122/76
--- NOTE | 2018-09-22 04:00 | NUR ---
COWS Deferred Patient was noted in bed with eyes closed, breathing was even and unlabored. Per protocol COWS is to be assessed while pt is awake. Will continue to monitor.
--- NOTE | 2018-09-22 07:25 | NUR ---
End of shift note Patient is a 28 year old male admitted on 09/21/18. Patient is here at [facility] for medically supervised Opiate withdrawal. Pt is on fall precautions. Pt had COWS deferred because he was not presenting with withdrawal symptoms. Patient had a onetime dose of Seroquel. Pt slept for 4 hours and had a total intake of 1,902 ml. Pt voided x2 and had no bowel movements. Pt had a critical lab value of K 3.2 and it was replaced with 40 Meq K-dur. Pt was depressed, isolated, poor eye contact and disheveled. Safety measures in place bed locked in low position, side rails up x2, and call light within reach. Will endorse to day shift.
[2018-09-22 08:00] VITALS: BP 90/60
--- NOTE | 2018-09-22 08:17 | NUR ---
START OF SHIFT: Received Pt laying in bed. He presents with blunted affect and depressed mood. He denies S/I and H/I. He reports fatigue, muscle aches,watery eyes and restlessness. COWS 7.PRN Motrin and Robaxin given for muscle aches. He states he just wants to sleep.Will continue to monitor and offer support.
[2018-09-22] MEDS ORDERED: TUBERCULIN,PURIF.PROT.DERIV. 5 TU/0.1 ML TEST ID ONE (09:00)
[2018-09-22] MEDS: IBUPROFEN 600 MG TABLET PO PRN (09:37)
[2018-09-22] MEDS: METHOCARBAMOL 750 MG TABLET PO PRN (09:37)
[2018-09-22] MEDS: MULTIVITAMINS,THERAPEUTIC TABLET PO SCH (09:37)
[2018-09-22] MEDS ORDERED: Medication Not On Formulary EA (Paroxetine Hcl 60 MG) PO SCH (09:45)
[2018-09-22] MEDS: PAROXETINE HCL 20 MG TABLET PO SCH (10:11)
[2018-09-22 12:00] VITALS: BP 108/60
--- NOTE | 2018-09-22 12:30 | NUR ---
COWS deferred as pt is asleep. Respirations even and unlabored.
[2018-09-22] MEDS: GABAPENTIN 300 MG CAPSULE PO SCH ×2 (15:00→20:51)
[2018-09-22 16:00] VITALS: BP 92/60
--- NOTE | 2018-09-22 18:45 | NUR ---
Pt came to nurses station reporting severe anxiety and agitation. PRN Anxiety given . Will endorse reassessment to night nurse.
--- NOTE | 2018-09-22 19:13 | NUR ---
END OF SHIFT: Pt slept most of shift. His last COWS 7 ay 0800.He felt restlessness and irritability. He was given PRN Ativan at end of shift for reported agitation and anxiety. Will endorse reassessment to oncoming night nurse. He refused PPD. Will pass shift report to oncoming night nurse.
--- NOTE | 2018-09-22 19:30 | NUR ---
Start of shift note Patient is a 28 year old male admitted on 09/21/18. Patient is here at [facility] for medically supervised Opiate withdrawal. Pt is on fall precautions. Pt had COWS deferred because he was sleping all day during day shift. Pt had PRN Ativan and needs reassessment. Upon rounds patient was noted in bed resting with eyes close and breathing even and unlabored. Safety measures in place bed locked in low position, side rails up x2, and call light within reach. Will continue to monitor.
[2018-09-22 20:00] VITALS: BP 94/55
--- NOTE | 2018-09-22 20:00 | NUR ---
COWS Assessment Patient is presenting with anxiety and agitation. Pt's COWS is 8. Safety measures in place will continue to monitor.
[2018-09-22] MEDS: LITHIUM CARBONATE 300 MG TABLET PO SCH (20:51)
[2018-09-22] MEDS: DIVALPROEX ER 500 MG TAB.SR.24H PO SCH (20:51)
[2018-09-23] VITALS: BP 98/57
[2018-09-23 05:07] LABS: HEPATITIS B SURFACE AG Negative (Negative)
--- NOTE | 2018-09-23 07:52 | NUR ---
End of shift note Patient is a 28 year old male admitted on 09/21/18, here at [facility] for medically supervised Opiate withdrawal. Pt is on fall precautions. Patient is on a 4 day Subutex taper. Patients last COWS is 8. Patient was compliant with plan of care. Patient slept for 9 hours and had a total intake of 500 ml. Pt voided x1 and had no bowel movements. Safety measures in place bed locked in low position, side rails up x2, and call light within reach. Will endorse to day shift.
--- NOTE | 2018-09-23 07:55 | NUR ---
BEGINNING OF SHIFT Patient received in bed with eyes closed, respirations even and unlabored, responsive to verbal stimuli, will educate regarding plan of care for the day. Received shift leader report all pertinent information was discussed. Patient is scheduled to begin day 1 of 4 day Subutex taper. Last COW score of: 8. Slept for 9 hours. Received no PRNs during shift leader. Patients safety measures are in place. call light with in reach, will continue to monitor.
[2018-09-23 08:34] VITALS: BP 98/66
[2018-09-23] MEDS: MULTIVITAMINS,THERAPEUTIC TABLET PO SCH (08:37)
[2018-09-23] MEDS: PAROXETINE HCL 20 MG TABLET PO SCH (08:37)
[2018-09-23] MEDS: BUPRENORPHINE HCL 2 MG TAB.SUBL SL SCH ×3 (08:37→20:50)
[2018-09-23] MEDS: GABAPENTIN 300 MG CAPSULE PO SCH ×3 (08:37→20:49)
[2018-09-23] MEDS ORDERED: 4 DAY TAPER BUPRENORPHINE -SERENITY PROTOCOL SL PRN (09:00)
--- NOTE | 2018-09-23 09:00 | NUR ---
COW ASSESSMENT Patient noted exhibiting the following s/sx of withdrawal: elevated heart rate, flushed face, clammy skin, difficulty sitting still, enlarged pupils, moist eyes, yawning, irritability, anxiety and gooseflesh. COW score of: 13.
[2018-09-23] MEDS: METHOCARBAMOL 750 MG TABLET PO PRN (11:28)
[2018-09-23] MEDS: IBUPROFEN 600 MG TABLET PO PRN (11:28)
--- NOTE | 2018-09-23 11:28 | NUR ---
PRN VISTARIL/ROBAXIN/MOTRIN Patient in bed reports increase pain 7/10 generalized body aches, also reports myalgia. Reports increase in anxiety as well. Patient provided with non pharmacological interventions with no relief, administered Vistaril for anxiety, Robaxin for myalgia and Motrin for pain as ordered, will monitor effectiveness of medications.
--- NOTE | 2018-09-23 12:28 | NUR ---
VISTARIL/ROBAXIN/MOTRIN REASSESSMENT Patient reports feeling less anxious, noted more clam. Patient reports decrease in pain level, current pain level 3/10, also reports decrease in myalgia. Safety measures are in place. patient was encouraged to increase PO fluid intake as tolerated, will continue to monitor closely. safety measures in place.
--- NOTE | 2018-09-23 13:00 | NUR ---
COW ASSESSMENT Patient noted exhibiting the following s/sx of withdrawal: flushed face, clammy skin, difficulty sitting still, enlarged pupils, moist eyes, yawning, irritability, anxiety and gooseflesh. COW score of: 12.
--- NOTE | 2018-09-23 13:25 | NUR ---
Therapist prompted client to attend group therapy sessions.
[2018-09-23 13:36] VITALS: BP 93/64
[2018-09-23 14:55] LABS: CREATININE 0.8 mg/dL (0.6-1.3); POTASSIUM 4.1 mmol/L (3.5-5.1)
[2018-09-23 16:00] VITALS: BP 108/58
--- NOTE | 2018-09-23 18:58 | NUR ---
END OF SHIFT Patient alert and oriented x4, continues under close observation, patient noted isolative. Prefers to stay in room, has avoidant eye contact and depressions/anxious mood. Denies SI/HI. Patient noted disheveled and unkempt. Encouraged to self groom and maintenance of personal area. Patient noted exhibiting the following s/sx of withdrawal: elevated heart rate, flushed face, clammy skin, difficulty sitting still, enlarged pupils, moist eyes, yawning, irritability, anxiety and gooseflesh. Last COW score of: 13. Received PRN: Vistaril, Robaxin and Motrin, medications were effective. Encouraged to attend group therapies/sessions to learn new coping skills to prevent relapse, noted attending and participating, denies SI/HI. Safety measures are in place. Call light kept with in reach, will continue to monitor.
--- NOTE | 2018-09-23 19:30 | NUR ---
Start of shift note Patient is a 28 year old male admitted on 09/21/18 for medically supervised opioid withdrawal. Patient is on a 4 day Subutex started today 09/23/2018. Patient is on fall precautions. Pats lasts COWS was 12. Per endorsement pt had PRN Vistaril, Robaxin and Motrin. Upon rounds pt was noted in room resting in bed watching tv, pt is AOx4 and seems depressed, withdrawn and flat affect. Pt did not attend group today. Pt has not had a bowel movement today but refused any meds. Safety measures in place bed locked in low position, side rails up x2, and call light within reach. Will continue to monitor.
[2018-09-23 20:00] VITALS: BP 112/71
--- NOTE | 2018-09-23 20:00 | NUR ---
COWS Assessment Patient is presenting with watery nose, hot and cold flashes and anxiety. Pt's COWS is 12. Safety measures in place will continue to monitor.
[2018-09-23] MEDS: LITHIUM CARBONATE 300 MG TABLET PO SCH (20:49)
[2018-09-23] MEDS: DIVALPROEX ER 500 MG TAB.SR.24H PO SCH (20:49)
--- NOTE | 2018-09-23 21:23 | NUR ---
PRN Benadryl Pt was reporting he was having difficulty falling asleep, administered PRN Benadryl. Pt tolerated well and will continue to monitor. Safety measures in place.
--- NOTE | 2018-09-23 22:23 | NUR ---
PRN Benadryl Reassessment Pt was noted in bed resting with eyes closed, breathing is even and unlabored. Medication was noted to be effective. Safety measures in place, call light within reach. Will continue to monitor.
--- NOTE | 2018-09-24 07:21 | NUR ---
End of shift note Patient is a 28 year old male admitted on 09/21/18 for medically supervised opioid withdrawal. Patient is on a 4 day Subutex started today 09/23/2018. Patient is on fall precautions. Pts lasts COWS was 12. Patient had PRN Benadryl during hotel night auditor. Patient slept for 9 hours and had 855 ml. Pt voided x1 and had no bowel movements during shift. Safety measures in place bed locked in low position, side rails up x2, and call light within reach. Will endorse to day shift.
--- NOTE | 2018-09-24 07:30 | NUR ---
Start of Shift B[employer]im[employer] Supervisor received report on 28 year old male admitted to [facility] on 09/21/18 for medical management of Opiate withdrawal. Pt endorses NKA, full code and regular diet. Pt denies any chronic PMH. Endorses PPH of depression, anxiety, and Bipolar. Pt currently on 4 day Subutex taper, with last COWS 12, per NOC report. Pt was administered Benadryl(insomnia) as PRN medication on NOC, per report. Brick Chimney Supervisor encounters pt in pts room with pt resting with eyes closed, even and unlabored respirations noted. Bed in low position with wheels locked and side rails up x2. Will continue to monitor, support and encourage according to plan of care.
[2018-09-24 08:30] VITALS: BP 90/50
--- NOTE | 2018-09-24 08:30 | NUR ---
COWS 13 Pt with anxiety, piloerection of skin, restlessness and tremors. Pt complains of nausea and myalgia with intermittent chills and sweats. Will continue to monitor, support and encourage according to plan of care.
[2018-09-24] MEDS ORDERED: BUPRENORPHINE HCL 2 MG TAB.SUBL SL SCH (09:00)
[2018-09-24] MEDS: PAROXETINE HCL 20 MG TABLET PO SCH (09:19)
[2018-09-24] MEDS: MULTIVITAMINS,THERAPEUTIC TABLET PO SCH (09:19)
[2018-09-24] MEDS: GABAPENTIN 300 MG CAPSULE PO SCH ×3 (09:20→20:14)
[2018-09-24 12:00] VITALS: BP 91/59
--- NOTE | 2018-09-24 12:00 | NUR ---
COWS 12 Pt has piloerection of skin, anxiety, restlessness, tremors and nausea. With diaphoresis, chills and myalgia. Will continue to monitor, support and encourage according to plan of care.
--- NOTE | 2018-09-24 13:47 | NUR ---
Therapist prompted client to attend group therapy.
[2018-09-24] MEDS: BUPRENORPHINE HCL 2 MG TAB.SUBL SL SCH ×2 (15:14→20:14)
[2018-09-24 16:30] VITALS: BP 90/52
--- NOTE | 2018-09-24 19:32 | NUR ---
End of Shift Manager Retail Sales provided report on 28 year old male admitted to [facility] on 09/21/18 for medical management of Opiate withdrawal. Pt endorses NKA, full code and regular diet. Pt denies any chronic PMH. Endorses PPH of depression, anxiety, and Bipolar. Pt currently on 4 day Subutex taper, with last COWS 12, recorded at 1630. Pt was not administered any PRN medication on this shift. Pt is isolative and withdrawn to room. Pt has rested entire shift. Pt is clear and speaks clearly when engaged by radio news writer. Pt with a blunted affect and depressed mood. Linear thought process and clear speech pattern. Bed in low position with wheels locked and side rails up x2.
--- NOTE | 2018-09-24 19:48 | NUR ---
START OF SHIFT NOTE Rcvd report from outgoing nurse. Pt is a 28 y/o male A/O to person, place, time, and purpose. Pt was admitted for medically supervised withdrawal from Heroin. Pt is on day 2 of a 4 day Subutex taper. Pt has been presenting w/ anxiety, abdominal cramping, body aches, restless legs, anxiety, blunt affect, and depressed and withdrawn mood. Pt has been isolative and has stayed in his room. Pt rcvd no PRN medications during previous shift. Last COWS 12 1600. Call light is within reach. Pt will continue to be monitored and needs met.
[2018-09-24 20:00] VITALS: BP 106/67
--- NOTE | 2018-09-24 20:00 | NUR ---
COWS ASSESSMENT COWS 12. . Pt has been presenting w/ anxiety, abdominal cramping, body aches, restless legs, anxiety, blunt affect, and depressed and withdrawn mood. Pt has been isolative and has stayed in his room. V/S; T:98.2, P:70, RR;16, SPO2:98, BP:106/67.
[2018-09-24] MEDS: DIVALPROEX ER 500 MG TAB.SR.24H PO SCH (20:15)
[2018-09-24] MEDS: QUETIAPINE FUMARATE 100 MG TABLET PO SCH (20:15)
[2018-09-24] MEDS: LITHIUM CARBONATE 300 MG TABLET PO SCH (20:15)
--- NOTE | 2018-09-25 | NUR ---
COWS DEFERRED Pt is in bed w/ his eyes closed. Pt's respirations are unlabored and even.
--- NOTE | 2018-09-25 04:00 | NUR ---
COWS DEFERRED Pt is in bed w/ his eyes closed. Pt's respirations are unlabored and even.
--- NOTE | 2018-09-25 07:09 | NUR ---
END OF SHIFT NOTE Endorsed pt to oncoming nurse. Pt is a 28 y/o male A/O to person, place, time, and purpose. Pt was admitted for medically supervised withdrawal from Heroin. Pt completed day 2 of a 4 day Subutex taper. Pt continued presenting w/ anxiety, abdominal cramping, body aches, restless legs, anxiety, blunt affect, and depressed and withdrawn mood. Pt has been isolative and has stayed in his room. Pt denies any S/I or H/I. No PRN medications were given during current shift. Pts fluid intake was 1091ml and he slept for 6.5 hrs. Last COWS 12 @ 2000. Call light is within reach.
[2018-09-25 08:00] VITALS: BP 100/67
--- NOTE | 2018-09-25 08:00 | NUR ---
START OF SHIFT AND COWS ASSESSMENT Pt 28 y/o male admitted for opiate withdrawal. Pt received in room on bed with eyes closed resting, but arousable to name. Pt alert and oriented to name, place, and time. Perrla. Skin warm and moist to touch. Respirations even and unlabored. Appears disheveled and unkempt. Hair uncombed. Clothes scattered throughout the room. Encouraged to maintain hygiene. cows=12 @0800. Anxious and restless. Pressured speech. Irritable. Complaints of generalized body aches. Bilateral hand tremors noted. It was reported that pt slept for 7 hours last night. Pt is on a 4 day subutex taper and is on day 3. Bed on lowest position with side rails x2 up for safety. Call light within reach.
[2018-09-25] MEDS: PAROXETINE HCL 20 MG TABLET PO SCH (09:10)
[2018-09-25] MEDS: MULTIVITAMINS,THERAPEUTIC TABLET PO SCH (09:10)
[2018-09-25] MEDS: GABAPENTIN 300 MG CAPSULE PO SCH ×3 (09:11→21:40)
[2018-09-25] MEDS: BUPRENORPHINE HCL 2 MG TAB.SUBL SL SCH ×3 (09:11→21:40)
[2018-09-25 12:00] VITALS: BP 89/53
--- NOTE | 2018-09-25 12:00 | NUR ---
COWS ASSESSMENT cows=12. Anxious and restless. Irritable. Bilateral hand tremors. Pressured speech. Complaints of generalized body aches and discomfort.
[2018-09-25] MEDS: MIRALAX 17 GM POWD.PACK PO PRN (15:30)
--- NOTE | 2018-09-25 15:33 | NUR ---
PRN MIRALAX Pt states is constipated. Miralax prn per MD order given.
[2018-09-25 16:00] VITALS: BP 122/78
--- NOTE | 2018-09-25 16:00 | NUR ---
COWS ASSESSMENT cows=12. Anxious and restless. Pressured speech. Bilateral hand tremor. Irritable. Complaints of generalized body aches and generalized discomfort. Intermittent perspiration.
--- NOTE | 2018-09-25 19:00 | NUR ---
END OF SHIFT Pt 28 y/o male admitted for opiate withdrawal. Pt alert and oriented to name, place, and time. Perrla. Skin warm and moist to touch. Respirations even and unlabored. Appears disheveled and unkempt. Empty drink bottles scattered throughout the room. Encouraged to maintain hygiene. Cows=12 @1600. Anxious and restless. Pressured speech. Bilateral hand tremor. Irritable. Complaints of generalized body aches. Pt medication compliant. Pt selective with group activity. Pt focused on his taper. Pt is on a 4 day subutex taper and is on day 3. Bed on lowest position with side rails x2 up for safety. Call light within reach.
--- NOTE | 2018-09-25 19:33 | NUR ---
START OF SHIFT NOTE Rcvd report from outgoing nurse. Pt is a 28 y/o male A/O to person, place, time, and purpose. Pt was admitted for medically supervised withdrawal from Opiates. Pt is on day 3 of a 4day Subutex taper. Pt has been presenting w/ chills, sweats, constipation, fine tremors, depressed and withdrawn mood, anxiety, and restlessness. Pt rcvd PRN Miralax and was noted ineffective. Last COWS 12 @ 1600. Call light is within reach. Pt will continue to be monitored and needs met.
[2018-09-25 20:00] VITALS: BP 113/81
--- NOTE | 2018-09-25 20:00 | NUR ---
COWS ASSESSMENT COWS 13. Pt has been presenting w/ chills, sweats, constipation, fine tremors, depressed and withdrawn mood, anxiety, and restlessness. V/S: T:98.1, P:101, RR:16, SPO2:98, BP:113/81.
[2018-09-25] MEDS: LITHIUM CARBONATE 300 MG TABLET PO SCH (21:40)
[2018-09-25] MEDS: QUETIAPINE FUMARATE 100 MG TABLET PO SCH (21:40)
[2018-09-25] MEDS: DIVALPROEX ER 500 MG TAB.SR.24H PO SCH (21:40)
--- NOTE | 2018-09-25 21:55 | NUR ---
ENDORSEMENT Endorsed from primary care nurse. Will continue to monitor.
--- NOTE | 2018-09-25 23:21 | NUR ---
PRN MILK OF MAG ADMINISTRATION Pt reports constipation and requests milk of mag. Encouraged fluid intake. Safety measures in place. Call light within reach. Will continue to monitor.
--- NOTE | 2018-09-26 00:21 | NUR ---
PRN MILK OF MAG REASSESSMENT Pt laying in bed with eyes closed, no BM yet. Safety measures in place. Will continue to monitor.
--- NOTE | 2018-09-26 07:24 | NUR ---
END OF SHIFT Pt is a 28 y/o male admitted on 09/21/18 for opiate withdrawal. Pt started a 4 day Subutex taper on 09/23/18, tolerating well. Pt presented with anxiety, restlessness, constipation, chills, tremors, difficulty falling asleep, and unkempt room. Scheduled medications and PRN Milk of Mag administered, effective in S/S of withdrawal as verbalized by pt. Last COWS 13. Pt slept 8 hours. Intake 1700 ml, void x 3, stool x 0. Safety measures in place. Pts needs have been met. Endorsed to day shift nurse.
[2018-09-26 08:00] VITALS: BP 98/68
--- NOTE | 2018-09-26 08:00 | NUR ---
START OF SHIFT AND COWS ASSESSMENT Pt 28 y/o male admitted for opiate withdrawal. Pt received in room on bed with eyes closed resting, but arousable to name. Pt alert and oriented to name, place, and time. Perrla. Skin warm and moist to touch. Respirations even and unlabored. Appears disheveled and unkempt. Empty drink bottles scattered throughout the room. Encouraged to maintain hygiene. Cows=13 @0800. Anxious and restless. Pressured speech. Irritable. Intermittent perspiration. Bilateral hand tremors noted. It was reported that pt slept for 8 hours last night. Pt is on a 4 day subutex taper and is on day 4. Bed on lowest position with side rails x2 up for safety. Call light within reach.
[2018-09-26] MEDS ORDERED: BUPRENORPHINE HCL 2 MG TAB.SUBL SL SCH (09:00)
[2018-09-26] MEDS: MULTIVITAMINS,THERAPEUTIC TABLET PO SCH (09:19)
[2018-09-26] MEDS: GABAPENTIN 300 MG CAPSULE PO SCH ×4 (09:19→21:00)
[2018-09-26] MEDS: MIRALAX 17 GM POWD.PACK PO PRN (09:20)
[2018-09-26] MEDS: PAROXETINE HCL 20 MG TABLET PO SCH (09:20)
--- NOTE | 2018-09-26 09:30 | NUR ---
PRN MIRALAAX Pt states is constipated. Miralaax prn per MD order given.
[2018-09-26] MEDS ORDERED: MAGNESIUM CITRATE 296 ML BOTTLE PO ONE (11:15)
[2018-09-26] MEDS: IBUPROFEN 600 MG TABLET PO PRN (11:37)
--- NOTE | 2018-09-26 11:42 | NUR ---
START OF SHIFT Pt 23 y/o male admitted for opiate withdrawal. Pt received in room on bed with eyes closed resting, but arousable to name. Pt alert and oriented to name, place, and time. Perrla. Skin warm and moist to touch. Respirations even and unlabored. Appears disheveled and unkempt. Food wrappings and empty drink bottles scattered throughout the room. Encouraged to maintain hygiene. Cows=10@ 0800. Anxious and restless. Pressured speech. Intermittent perspiration. Bilateral hand tremors noted. Complaints of generalized discomfort. It was reported that pt slept for 11 hours last night. Pt is on a 3 day subutex taper and is on day 3. Bed on lowest position [facility] side rails x2 up for safety. Call light within reach. Addendum: 09/26/18 at 1147 by SURESH FENTON RN incorrect time and title Addendum: 09/26/18 at 1148 by SURESH FENTON RN incorrect pt
--- NOTE | 2018-09-26 11:42 | NUR ---
PRN IBUPROFEN Pt with c/o headache 01/12. Ibuprofen prn per MD order given.
[2018-09-26 12:00] VITALS: BP 106/63
--- NOTE | 2018-09-26 12:12 | NUR ---
Therapist prompted client to attend group therapy sessions.
[2018-09-26 16:00] VITALS: BP 105/69
--- NOTE | 2018-09-26 16:00 | NUR ---
COWS ASSESSMENT Cows=13. Anxious and restless. Pressured speech. Pacing. Fidgety. Intermittent perspirations/ chills. Complaints of generalized discomfort.
[2018-09-26] MEDS ORDERED: BUPRENORPHINE HCL 2 MG TAB.SUBL SL ONE (18:00)
--- NOTE | 2018-09-26 18:21 | NUR ---
END OF SHIFT Pt 28 y/o male admitted for opiate withdrawal. Pt alert and oriented to name, place, and time. Perrla. Skin warm and moist to touch. Respirations even and unlabored. Appears disheveled and unkempt. Clothes scattered throughout the room. Encouraged to maintain hygiene. Cows=13 @1600. Anxious and restless. Pressured speech. Irritable. Fidgety. Bilateral hand tremors noted. Pt attended group activity. Pt is on a 4 day subutex taper and is on day 4. Bed on lowest position with side rails x2 up for safety. Call light within reach.
--- NOTE | 2018-09-26 19:30 | NUR ---
START OF SHIFT Received patient awake, alert, and oriented x4 lying in bed watching television. Patient is a 28 year old male admitted for medically supervised withdrawal from opiates with secondary diagnoses of anxiety, depression, and bipolar disorder. Per endorsement, patient is on a scheduled Subutex taper. PRN Miralax and Ibuprofen were given to patient by AM nurse. Upon assessment, patient denies pain or dizziness. Last COWS score is 13. All safety measures are in place. Call light functional and within reach. Bed in a low locked position. Will continue to monitor.
[2018-09-26 20:00] VITALS: BP 97/52
--- NOTE | 2018-09-26 20:00 | NUR ---
COWS = 10 Patient noted with anxiety, chills, restlessness, diffuse discomfort, and fine tremors. COWS score is 10 at this time. Will continue to monitor.
[2018-09-26] MEDS: QUETIAPINE FUMARATE 100 MG TABLET PO SCH (20:54)
[2018-09-26] MEDS: DIVALPROEX ER 500 MG TAB.SR.24H PO SCH (20:54)
[2018-09-26] MEDS: LITHIUM CARBONATE 300 MG TABLET PO SCH (20:55)
--- NOTE | 2018-09-26 20:55 | NUR ---
PATIENT REFUSED MED Gabapentin was held due to patient refusal. Patient stated I dont want to take it because [facility] been to many facilities and they always prescribe it to me. I dont want to take it too much because its hard to stop. Charge nurse made aware. Will continue to monitor.
--- NOTE | 2018-09-27 | NUR ---
VITALS AND COWS DEFERRED Patient is noted lying in bed with eyes closed and even and unlabored respirations. HOB flat and side rails up x2. Vital signs refused and COWS assessment deferred. Call light is functional and within reach. Bed is in a low position and wheels are locked. Will continue to monitor.
--- NOTE | 2018-09-27 07:16 | NUR ---
END OF SHIFT Patient is a 28 year old male admitted for medically supervised withdrawal from opiates with secondary diagnoses of anxiety, depression, and bipolar disorder. During the shift, patient did not report any negative symptoms and did not request any PRNs. Patient refused Gabapentin during the 2100 meds stating, I dont want to take it because [facility] been to many facilities and they always prescribe it to me. I dont want to take it too much because its hard to stop. Last COWS score is 10. Patient slept for about 3 hours and 15 minutes. All safety measures are in place. Call light functional and within reach. Bed in a low locked position. Endorsed to oncoming AM shift nurse.
[2018-09-27 08:00] VITALS: BP 96/58
--- NOTE | 2018-09-27 08:00 | NUR ---
Start of Shift Notes/COWS Assessment: Endorsement received from night nurse. Patient is a 28 year old male admitted for opiate withdrawal who was placed on a 4-day Subutex taper as ordered. No adverse reactions noted. Per night report, patient refused his Gabapentin during the night. No PRNs given. Slept for a total of 3 hours only and last COWS 10. Patient received in his room. Appears disheveled, unkempt, and unshaven. Room is messy with noted poor regards to hygiene. He is noted with nasal stuffiness, gross tremors, piloerection of the skin, anxiety, agitation, chills and hot flashes. COWS 12 at this time. Educated patient on his current plan of care for the day and his medication regimen. Patient verbalize that he only wants to take his Subutex and Paxil in the AM. Encouraged patient to comply. Encouraged to increase oral fluid intake and to attend group to learn new skills to prevent relapse. All needs met and attended. Will continue to monitor closely.
[2018-09-27] MEDS: MULTIVITAMINS,THERAPEUTIC TABLET PO SCH (09:00)
[2018-09-27] MEDS ORDERED: BUPRENORPHINE HCL 2 MG TAB.SUBL SL ONE (09:00)
[2018-09-27] MEDS: GABAPENTIN 300 MG CAPSULE PO SCH ×3 (09:00→21:00)
--- NOTE | 2018-09-27 09:50 | NUR ---
MVI/Gabapentin 300 mg PO refused: Patient refused Gabapentin and MVI at 0900. Educated patient on the risk and benefits but patient still refused. Will continue to monitor.
[2018-09-27] MEDS: PAROXETINE HCL 20 MG TABLET PO SCH (09:54)
[2018-09-27 12:00] VITALS: BP 101/60
--- NOTE | 2018-09-27 12:00 | NUR ---
COWS Assessment: COWS 10, patient continues to complain of s/s of withdrawal m/b gross tremors, anxiety, agitation, facial flushing, increased emotional amplitude, pupil dilation, nasal stuffiness, and generalized discomfort. Will continue to monitor and medicate patient as ordered.
[2018-09-27] MEDS ORDERED: CLON0.1T14 PO (13:05)
[2018-09-27] MEDS ORDERED: METH-406 PO (13:05)
[2018-09-27] MEDS ORDERED: QUET100T PO (13:05)
[2018-09-27 16:00] VITALS: BP 107/70
--- NOTE | 2018-09-27 16:00 | NUR ---
COWS 9 Pt noted with slight restlessness, slight remors, obvious irritability, and gooseflesh. COWS 9
--- NOTE | 2018-09-27 16:42 | NUR ---
Therapist prompted client to attend group therapy sessions.
--- NOTE | 2018-09-27 19:20 | NUR ---
End of Shift Note: Pt in bed resting. Pt has completed Subutex taper to manage withdrawal symptoms. Last COWS 9. Pt is scheduled to be discharged on due to treatment center placement. Pt had no other complaints during the shift. All needs attended and met. Will endorse to night supervisor nurse.
--- NOTE | 2018-09-27 19:22 | NUR ---
Start of shift note Received report from day shift nurse. Pt is a 28 yo male, A+Ox4, presenting to [facility] for medically supervised Opiate withdrawal. Pt noted with restlessness, agitation, and anxiety. Pt has HX of depression, anxiety, and bipolar disorder which will be monitored during shift. Pt has completed 4 day Subutex taper, tolerated well. Respirations even and unlabored. Will continue to monitor.
--- NOTE | 2018-09-27 20:10 | NUR ---
COWS Assessment COWS: 8. Pt noted with pulse 81, chills, restlessness, stuffy nose, fine tremors, anxiety, and yawning. Respirations even and unlabored. Will continue to monitor.
[2018-09-27 20:11] VITALS: BP 100/53
[2018-09-27] MEDS: DIVALPROEX ER 500 MG TAB.SR.24H PO SCH (22:18)
[2018-09-27] MEDS: LITHIUM CARBONATE 300 MG TABLET PO SCH (22:18)
[2018-09-27] MEDS: QUETIAPINE FUMARATE 100 MG TABLET PO SCH (22:18)
--- NOTE | 2018-09-28 00:54 | NUR ---
V/S refused and COWS Assessment deferred for sleep. Respirations even and unlabored. Will continue to monitor.
--- NOTE | 2018-09-28 04:54 | NUR ---
V/S refused and COWS Assessment deferred for sleep. Respirations even and unlabored. Will continue to monitor.
--- NOTE | 2018-09-28 07:00 | NUR ---
End of shift note Pt was continuously noted with anxiety, restlessness, and chills. Pt remained in room for majority of shift except to get food from kitchen and to go smoke on smoking patio. Pt remained cooperative and compliant with all aspects of treatment. Pt was not given any PRN medications during shift. Pt has completed 4 day Subutex taper, tolerated well. Pt slept for a total of 10 HRS. Last COWS: 8 @2009. Respirations even and unlabored. Will endorse to day shift nurse.
--- NOTE | 2018-09-28 07:30 | NUR ---
start of shift note: received pt from table games shift manager nurse, pt is in stable condition, pt is admitted to [facility] for opiate withdrawal/dependence. pt completed taper and awaiting safe discharge location. pt is very quite and keeps to himself. pt appears depressed and quite. will encourage pt to join groups and activities.
[2018-09-28] MEDS: GABAPENTIN 300 MG CAPSULE PO SCH ×3 (09:00→21:00)
--- NOTE | 2018-09-28 09:00 | NUR ---
cows 5: pt without complaints of pain or discomfort, pt with flat affect, verbalized he will be refusing gabapentin throughout the shift. pt is hypoaffective and introverted.
[2018-09-28] MEDS: MULTIVITAMINS,THERAPEUTIC TABLET PO SCH (10:08)
[2018-09-28] MEDS: PAROXETINE HCL 20 MG TABLET PO SCH (10:08)
[2018-09-28 11:21] VITALS: BP 99/60
[2018-09-28 14:03] VITALS: BP 109/64
[2018-09-28 17:55] VITALS: BP 146/86
--- NOTE | 2018-09-28 19:12 | NUR ---
end of shift note: pt is in stable condition no s/s of pain or discomfort. pt completed taper without A/R noted. pt is set to discharge tomorrow. pt's last documented cows is 5
--- NOTE | 2018-09-28 19:30 | NUR ---
START OF SHIFT Pt is a 28 y/o male admitted on 09/21/18 for opiate withdrawal. Pt finished a 4 day Subutex taper and is scheduled to be d/c tomorrow. Last COWS 5 and no PRNs administered during day shift. Upon assessment pt presents with anxiety, agitation, difficulty staying asleep, restlessness, poor eye contact, flat affect, lethargy, disheveled appearance, chills, and unkempt room. Medications due. Safety measures in place. Call light within reach. Will continue to monitor.
[2018-09-28 20:00] VITALS: BP 114/73
--- NOTE | 2018-09-28 20:00 | NUR ---
COWS ASSESSMENT COWS 5. Pt presents with anxiety, agitation, difficulty staying asleep, restlessness, poor eye contact, flat affect, lethargy, disheveled appearance, chills, and unkempt room
[2018-09-28] MEDS: DIVALPROEX ER 500 MG TAB.SR.24H PO SCH (21:37)
[2018-09-28] MEDS: QUETIAPINE FUMARATE 100 MG TABLET PO SCH (21:37)
[2018-09-28] MEDS: LITHIUM CARBONATE 300 MG TABLET PO SCH (21:37)
--- NOTE | 2018-09-29 07:08 | NUR ---
END OF SHIFT Pt is a 28 y/o male admitted on 09/21/18 for opiate withdrawal. Pt finished a 4 day Subutex taper and is scheduled to be d/c today. Pt presented with anxiety, agitation, difficulty staying asleep, restlessness, poor eye contact, flat affect, lethargy, disheveled appearance, chills, and unkempt room. Pt refused scheduled gabapentin, but other scheduled medications administered and no PRNs given. Last COWS 5. Pt slept 10 hours. Intake 950 ml, void x 2, stool x 0. Safety measures in place. Call light within reach. Pts needs have been met. Endorsed to day shift nurse.
--- NOTE | 2018-09-29 07:30 | NUR ---
Start of Shift Automatic Coin Machine Mechanic received report on 28 year old male admitted to [facility] on 09/21/18 for medical management of Opiate withdrawal. Pt endorses NKA, full code and regular diet. Pt denies any chronic PMH. Endorses PPH of depression, anxiety, and Bipolar. Pt has completed a Subutex taper in preparation of discharge this am. Last COWS 5. No PRN medications administered on NOC, per report. Automatic Coin Machine Mechanic encounters pt in pts room with pt resting with eyes closed, even and unlabored respirations noted. Bed in low position with wheels locked and side rails up x2. Will continue to monitor, support and encourage according to plan of care.
--- NOTE | 2018-09-29 07:55 | NUR ---
Decreased BP Nitro Man notified of pt's BP of 84/49. Nitro Man encountered pt in pt's room, resting. Pt is A/O and able to make needs known. Endorses having chronic low BP, "yeah, it's always low." Will continue to monitor, support and encourage according to plan of care.
[2018-09-29 08:11] VITALS: BP 84/49
--- NOTE | 2018-09-29 08:13 | NUR ---
COWS 3 Pt is anxious and restless about discharge. Will continue to monitor, support and encourage according to plan of care.
[2018-09-29] MEDS: GABAPENTIN 300 MG CAPSULE PO SCH (09:00)
[2018-09-29] MEDS: MULTIVITAMINS,THERAPEUTIC TABLET PO SCH (09:07)
[2018-09-29] MEDS: PAROXETINE HCL 20 MG TABLET PO SCH (09:07)
--- NOTE | 2018-09-29 09:57 | NUR ---
Discharge Assessment Pt is discharged at 0957, via private vehicle for transportation to [facility]. Pt is A/O and able to make needs known. Pt with a linear thought process and clear speech pattern. Pt with a flat affect and depressed mood. Pt is irritable, but cooperative. Controls Engineer educated pt on need for continued sobriety, follow-up care and medication compliance. Controls Engineer provided education on discharge medications, including name, route, dose, time and indication or of all prescribed medications. Pt denies any further comments , questions or concerns. Pt denies SI/HI or A/VH. Pt endorses some anxiety related to discharge, with last COWS 3. Controls Engineer obtained all necessary signatures and returned pt's home medication and contacts from the pharmacy.
== END 2018-09-29 09:57 | disposition home or self-care (01) | DRG 895 ==
LOC: SRC 22:26
PROVIDERS: ADMIT Family Medicine Addiction Medicine; ATTEND Family Medicine Addiction Medicine
PROC: HZ2ZZZZ Detoxification Services for Substance Abuse Treatment (ICD-10-PCS; principal; 2018-09-21)
PROC: HZ31ZZZ Individual Counseling for Substance Abuse Treatment, Behavioral (ICD-10-PCS; 2018-09-23)
PROC: HZ41ZZZ Group Counseling for Substance Abuse Treatment, Behavioral (ICD-10-PCS; 2018-09-25)
DX: F11.23 Opioid dependence with withdrawal (principal); F31.30 Bipolar disorder, current episode depressed, mild or moderate severity, unspecified; F41.1 Generalized anxiety disorder; Z79.899 Other long term (current) drug therapy; Z81.8 Family history of other mental and behavioral disorders; F17.210 Nicotine dependence, cigarettes, uncomplicated
CPT/HCPCS: 36415; 70030-TC; 80307; 80361; 83735; 84443; 85025; 86592; 86705; 86803; 87340; 87806; 93005; A4663; G0480; Q0162; Q0163